=== PATIENT | female | born 1995 | race Caucasian/White ===

== ENCOUNTER 2020-01-24 21:36 | Emergency (ER) | payer SELFPAY ==
[2020-01-24] VITALS (18 sets, daily range): BP systolic 127; BP diastolic 82; PULSE 115; RESP 18; TEMP 36.8; O2SAT 89–100; BMI 27.4
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
[2020-01-24] MEDS: ondansetron 2 mg/ML SDV 2 mL 4 MG IVP (22:28)
[2020-01-24] MEDS: sodium chloride 0.9% 500 ML 999 ML IV (22:28)
[2020-01-24] MEDS: morphine 4 mg/mL SDV 1 mL IVP (22:29)
[2020-01-24 22:54] LABS: Basophils % 0.2 %; Eosinophils # 0.1 10^3/uL (0.0-0.8); Eosinophils % 0.7 %; Hematocrit 40.8 % (37.0-47.0); Hemoglobin 13.6 g/dL (11.5-15.3); Lymphocytes # 2.8 10^3/uL (0.8-4.8); Lymphocytes % 18.2 %; Mean Corpuscular HGB Conc 33.3 g/dL (30.0-36.0); Mean Corpuscular Hemoglobin 29.6 pg (28.0-34.0); Mean Corpuscular Volume 88.9 fL (81-99); Monocytes # 1.4 10^3/uL (0.2-0.9); Neutrophils # 10.8 10^3/uL (1.8-7.7); Neutrophils % 71.6 %; Nucleated Red Blood Cells % 0 %; Platelet Count 362 10^3/cmm (130-400); Red Blood Count 4.59 10^6/uL (4.1-5.3); Red Cell Distribution Width 13.1 % (12.1-15.1); White Blood Count 15.2 10^3/uL (4.0-10.0)
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
[2020-01-24] MEDS: iohexol 300 mg/mL 100 mL Btl IV (23:19)
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
[2020-01-24 23:32] LABS: HCG, Serum Qual Negative (Negative)
[2020-01-24 23:33] LABS: Alanine Aminotransferase 23 U/L (0-33); Albumin Level 4.8 g/dL (3.5-5.2); Alkaline Phosphatase 62 IU/L (35-105); Anion Gap 19.9 (5-19); Aspartate Amino Transferase 30 U/L (0-32); Blood Urea Nitrogen 20 mg/dL (6-20); Carbon Dioxide 20 mmol/L (22-29); Chloride 102 mmol/L (98-107); Creatinine Clr Calc Pharmacy 81.5679; Glomerular Filtration Rate 68.1 mL/min (90-130); Glucose 92 mg/dL (65-115); Osmolality Calculated 282 mOsm/kg (285-295); Potassium 3.9 mmol/L (3.5-5.1); Sodium 138 mmol/L (136-145); Total Bilirubin 0.7 mg/dL (0.15-1.2); Total Protein 7.8 g/dL (6.6-8.7)
[2020-01-25] VITALS (23 sets, daily range): BP systolic 127; BP diastolic 82; O2SAT 87–100
[2020-01-25 01:00] LABS: Urine Appearance Hazy (CLEAR); Urine Color Yellow (Yellow); pH Urine 7 (5-7)
[2020-01-25 01:01] LABS: Add Urine Microscopic? YES; Bilirubin Urine Neg (NEGATIVE); Blood Urine 2+ (Negative); Glucose Urine UA Norm (Normal); Ketones Urine 1+ (Negative); Leukocyte Esterase Urine Negative (Negative); Nitrate Urine Negative (Negative); Protein Urine Trace (Negative); Urobilinogen Urine Norm (Negative)
[2020-01-25 01:02] LABS: Amphetamines Screen Urine Positive (Negative); Barbiturates Screen Urine Negative (Negative); Benzodiazepines Screen Urine Negative (Negative); Cocaine Screen Urine Negative (Negative); Opiate Screen Urine Negative (Negative); PCP Screen Urine Negative (Negative); THC Screen Urine Positive (Negative)
[2020-01-25 01:05] LABS: Add Urine Culture? No; Bacteria Urine 1+; Fine Granular Casts Urine 0-4 /lpf; Mucus Urine 3+
--- NOTE | 2020-01-25 01:57 | PC.NURSE ---
EMS on site to assume care of patient and transport.
== END 2020-01-25 01:57 | disposition other institution (70) ==
PROVIDERS: Emergency Provider Emergency Medicine
DX: J98.2 Interstitial emphysema (principal); F17.210 Nicotine dependence, cigarettes, uncomplicated
CPT/HCPCS: 12345; 70450; 71260; 72125; 73060; 73562; 74177; 80053; 80306; 81001; 84703; 85025; 99284; A9270; J2270; J2405; J7040; Q9967

== ENCOUNTER → 2020-10-27 10:07 | Outpatient (BNVA) | payer OTHER, SELFPAY | PROVIDERS: Visit Provider Nurse Practitioner Family | DX: Z20.828 Contact with and (suspected) exposure to other viral communicable diseases (principal); J06.9 Acute upper respiratory infection, unspecified | CPT/HCPCS: 87635 ==

== ENCOUNTER → 2022-10-19 11:21 | Outpatient (BNVA) | payer BC, MEDICAID, SELFPAY | PROVIDERS: Visit Provider Nurse Practitioner Family | DX: F41.9 Anxiety disorder, unspecified (principal); F32.9 Major depressive disorder, single episode, unspecified; Z12.4 Encounter for screening for malignant neoplasm of cervix; Z11.3 Encounter for screening for infections with a predominantly sexual mode of transmission | CPT/HCPCS: 80053; 80061; 81025; 84146; 84443; 84702; 85025; 86592; 86695; 86696; 86705; 86706; 86709; 86803; 87070; 87075; 87205; 87340; 87491; 87591; 87661; 87806; 88175 ==

== ENCOUNTER 2023-03-17 16:16 | Outpatient (CLI) | payer BC, MEDICAID, SELFPAY ==
--- NOTE | 2023-03-17 16:34 | XRR_ITS ---
PROCEDURE INFORMATION: Exam: XR Thoracic Spine Exam date and time: 03/17/2023 4:35 PM Age: 28 years old Clinical indication: Pain in thoracic spine; Patient HX: Numbness wave down both arms and pain in the middle back; Additional info: M54.6 - pain in thoracic spine TECHNIQUE: Imaging protocol: Radiologic exam of the thoracic spine. Views: 3 views. COMPARISON: CT chest abdpel w/*[id number] 01/24/2020 11:16 PM FINDINGS: Bones/joints: Normal. No acute fracture. Normal alignment. Soft tissues: Unremarkable. XR/XR thoracic spine 3V* [id number] IMPRESSION: No acute findings.
== END 2023-03-17 16:17 | disposition home or self-care (01) ==
PROVIDERS: PCP Nurse Practitioner Family; Visit Provider Nurse Practitioner Family
DX: M54.6 Pain in thoracic spine (principal); R20.0 Anesthesia of skin
CPT/HCPCS: 72072

== ENCOUNTER 2023-05-15 08:43 | Outpatient (CLI) | payer BC, MEDICAID, SELFPAY ==
--- NOTE | 2023-05-15 08:49 | MR_ITS ---
WS: [id number] MRI HEAD WITH CONTRAST TECHNIQUE: Sagittal T1, T2 axial, T2 axial FLAIR, axial susceptibility weighted imaging, axial diffus ion weighted images, and coronal T2 images were obtained. Pre and post-T1 axial and post T1 coronal i mages. ADC and FSPGR images. CLINICAL INFORMATION: DYSARTHRIA COMPARISON: CT head 01/24/2020 FINDINGS: No evidence of restricted diffusion to suggest acute ischemia. Ventricular system and basal cisterns are patent. Advanced patchy supra and infratentorial white matter changes some in a pericallosal dist ribution suspicious for demyelinating disease in a patient this age. Patchy lesions within the khari a nd cerebellum bilaterally. Several small enhancing periventricular lesions left frontal horn, body of the right lateral ventricle posteriorly, and right inferior frontal lobe. Largest measures approxima tely 7 mm in the inferior right frontal lobe. Findings suspicious for active demyelinating disease. M ild thinning of the corpus callosum. Additional tiny enhancing lesion left parietal white matter. Mild to moderate T1 hypointense lesion limited. No significant parenchymal volume loss. Normal dural venous sinuses. No hemosiderin on susceptibility-weighted images. Normal optic chiasm and pituitary i nfundibulum. Temporal lobe and hippocampal formations are normal in appearance. Normal vascular flow voids at the skull base. No extra-axial fluid collections. Paranasal sinuses and mastoid air cells are well aerated. IMPRESSION: 1. Patchy supra and infratentorial white matter changes advanced for a patient this age suspicious f or demyelinating disease. Consider neurology consultation. 2. Few enhancing pericallosal lesions described above the largest measuring 7 mm suspicious for acti ve demyelinating disease. 3. Mild atrophy of the corpus callosum with pericallosal lesions. 4. No hemosiderin on susceptibility weighted images.
[2023-05-15] MEDS: gadobenate dimeglumine 20 mL vial IV (10:06)
== END 2023-05-15 08:44 | disposition home or self-care (01) ==
PROVIDERS: PCP Nurse Practitioner Family; Visit Provider Internal Medicine
DX: R47.1 Dysarthria and anarthria (principal); G31.9 Degenerative disease of nervous system, unspecified; G93.9 Disorder of brain, unspecified; R93.0 Abnormal findings on diagnostic imaging of skull and head, not elsewhere classified
CPT/HCPCS: 70553; A9577

== ENCOUNTER → 2023-06-08 10:41 | Outpatient (BNVA) | payer BC, MEDICAID, SELFPAY | PROVIDERS: PCP Nurse Practitioner Family; Visit Provider Psychiatry & Neurology Neurology | DX: G40.109 Localization-related (focal) (partial) symptomatic epilepsy and epileptic syndromes with simple partial seizures, not intractable, without status epilepticus (principal); M54.6 Pain in thoracic spine; G51.31 Clonic hemifacial spasm, right; R94.01 Abnormal electroencephalogram [EEG] | CPT/HCPCS: 36415; 80053; 82306; 82607; 82746; 83735; 83921; 84439; 84443; 84481; 85025; 85651; 86140; 86160; 86162; 86235; 86255; 86376 ==

== ENCOUNTER → 2024-01-22 13:56 | Outpatient (BNVA) | payer BC, MEDICAID, SELFPAY | PROVIDERS: PCP Nurse Practitioner Family; Visit Provider Nurse Practitioner Family | DX: Z11.3 Encounter for screening for infections with a predominantly sexual mode of transmission (principal) | CPT/HCPCS: 86592; 86695; 86696; 87491; 87591; 87661 ==

== ENCOUNTER → 2024-01-23 | Outpatient (BNVA) | payer BC, MEDICAID, SELFPAY | PROVIDERS: PCP Nurse Practitioner Family; Visit Provider Nurse Practitioner Family | DX: Z11.3 Encounter for screening for infections with a predominantly sexual mode of transmission (principal) | CPT/HCPCS: 87491; 87591 ==

== ENCOUNTER → 2025-08-07 11:09 | Outpatient (BNVA) | payer SELFPAY | PROVIDERS: PCP Nurse Practitioner Family; Visit Provider Nurse Practitioner Family | DX: Z11.3 Encounter for screening for infections with a predominantly sexual mode of transmission (principal); N92.6 Irregular menstruation, unspecified; N91.2 Amenorrhea, unspecified; E55.9 Vitamin D deficiency, unspecified | CPT/HCPCS: 80053; 81025; 82306; 84443; 84702; 85025; 86592; 87491; 87591; 87661; 87806 ==

== ENCOUNTER 2025-09-30 19:41 | Emergency (ER) | payer SELFPAY ==
--- NOTE | 2025-09-30 19:44 | USR_ITS ---
PROCEDURE INFORMATION: Exam: US Pelvis Transabdominal, Limited, and US Pelvis Transvaginal, Non-Obstetric Exam date and time: 09/30/2025 8:02 PM Age: 30 years old Clinical indication: Pelvic pain TECHNIQUE: Imaging protocol: Real-time transabdominal and transvaginal pelvic ultrasound (non-obstetric) with image documentation. Transabdominal imaging is limited. Transvaginal imaging was used for better evaluation of the endometrium, adnexa, and/or cervix. 256 image(s) are submitted. COMPARISON: CT chest abdpel w/*[id number] 01/24/2020 11:16 PM FINDINGS: Uterus: Normal uterine size of 7.5 x 4.6 x 5 cm with smooth endometrial lining of 1 cm thickness. Right ovary measures 4.8 x 2.9 x 3.4 cm containing at least 2 irregular cysts with internal echoes measuring 2.4 x 1 cm and 1.6 x 1 cm each, could represent hemorrhagic cysts. Right ovary/adnexa: Right ovarian volume of 25 cc. Left ovary size is 10 cc, 2.9 x 3.1 x 2.1 cm diameter. Left ovary/adnexa: See Right ovary/adnexa finding. Urinary bladder: Urinary bladder is limited. Intraperitoneal space: Small amount of free pelvic fluid in the cul-de-sac. No adnexal mass lesion seen. US/US pelvis lmt w transvag IMPRESSION: 1. Normal uterine size of 7.5 x 4.6 x 5 cm with smooth endometrial lining of 1 cm thickness. Right ovary measures 4.8 x 2.9 x 3.4 cm containing at least 2 irregular cysts with internal echoes measuring 2.4 x 1 cm and 1.6 x 1 cm each, could represent hemorrhagic cysts. 2. Small amount of free pelvic fluid in the cul-de-sac. No adnexal mass lesion seen.
--- NOTE | 2025-09-30 19:45 | ED_ITS ---
HPI - General Adult 2 General: Chief complaint: Urogenital-Female Stated complaint: RT ovarie pain to middle back. Pressure on Rectum Time Seen by Provider: 09/30/25 19:45 History of Present Illness: 30-year-old female presents emergency ro om with complaints of right sided pelvic pain and discomfort. Some rectal pain. She was seen in early August had a negative test. After intercourse with her she began to have pelvic pain radiating to her back and into the rectal area. She has not had any vaginal bleeding. She denies any diarrhea no vaginal discharge. Associated symptoms: Deny chest pain, dyspnea or rash Related Data Previous Rx's ?Medication ?Instructions ?Recorded cholecalciferol (vitamin D3) 1,250 50,000 unit PO .brenton klcindy #12 caps 08/07/25 mcg (50,000 unit) capsule cephalexin 500 mg capsule 500 mg PO TID 7 days #21 cap s 09/30/25 diclofenac sodium 75 mg 75 mg PO Q12H PRN pain #20 t abs 09/30/25 tablet,delayed release Allergies Allergy/AdvReac Type Severity Reaction Status Date / Time No Known Allergies Allergy Verified 08/07/25 10:27 Review of Systems 2 Const: Denies: fever(s) or chills Card: Denies: chest pain Resp: Denies: dyspnea GI: Denies: abdominal pain : Reports: pelvic pain; Denies: dysuria, urinary frequency, urinary urgency, vaginal bleeding or vaginal discharge Musc: Denies: neck pain or back pain Skin/Breast: Denies: rash PFSH ED 2 PFSH: Medical History Anxiety and depression Thoracic spine pain Social History Smoking and tobacco/nicotine status: current every day tobacco/nicotine user e- cigarettes E-Cigarette Details: vaporizer device Second hand smoke exposure: No Alcohol intake: current Alcohol intake frequency: few times a week Alcohol type: beer Substance/Drug Use: former Caregiver/support person: Yes Lives independently: Yes Household members: significant other Marital status: Single Current occupational status: employed and student Current occupation: [employer] and fulltime student at [employer] Current gender identity: Female Special dariela needs: No Physical Exam 2 Const: COMMON NORMALS: no acute distress GENERAL APPEARANCE: cooperative and comfortable ORIENTATION/CONSCIOUSNESS: Yes awake, Yes oriented to person, Yes oriented to place and Yes oriented to time HENMT: COMMON NORMALS: normocephalic, atraumatic and hearing grossly normal bilaterally HEAD & SCALP: normocephalic and atraumatic Resp: COMMON NORMALS: normal respiratory effort, No retractions, No use of accessory muscles and clear to auscultation bilaterally AUSCULTATION: clear to auscultation bilaterally Cardio: COMMON NORMALS: regular rate, regular rhythm and No murmurs present (Cardio) RATE: regular rate RHYTHM: regular rhythm GI: COMMON NORMALS: Soft to palpation and No hepatosplenomegaly present A USCULTATION: Yes normoactive bowel sounds PALPATION: Yes Soft to palpation, No Tenderness to palpation present (GI), No Guarding due to palpation present (GI) and Yes No hepatosplenomegaly present Extremity: COMMON NORMALS: normal to inspection, capillary refill normal, no clubbing, cyanosis or edema, no calf tenderness and no pedal edema Neuro: SENSORIUM/ORIENTATION: Yes oriented to person, Yes oriented to place and Yes oriented to time Skin: COMMON NORMALS: no rashes or lesions noted GENERAL SKIN EXAM: no rashes or lesions noted Course 2 Vital Signs: Vital signs: Vital Signs Temperature 98.7 F 09/30/25 19:46 Pulse Rate 87 09/30/25 21:10 Respiratory Rate 17 09/30/25 19:46 Blood Pressure 137/87 09/30/25 21:10 Pulse Oximetry 98 09/30/25 21:10 Oxygen Delivery Me thod Room Air 09/30/25 19:46 MDM - General Adult Medical Decision Making Patient is dyspareunia shortly after intercourse. Pelvic ultrasound shows ovarian cysts urine shows 4+ bacteria and does have a fair number of white blood cells also squamous cells positive leukocyte esterase. White count not elevated appendicitis thought to be unlikely. Chemistries otherwise normal labs reviewed as found on the chart. Discussed with patient. Started on diclofenac as well as cephalexin for the urine. She has an upcoming appointment with her telegraph and teletype operator follow-up with them regarding the ovarian cyst she may need to repeat ultrasound in 1-2 cycles. Differential Diagnosis Ovarian cyst, ruptured ovarian cyst, ectopic , , appendicitis Medical Records I reviewed the patient's medical records. Lab Data I reviewed the patient's lab results. 09/30/25 19:48 09/30/25 19:48 Radiology Impressions Pelvic/Transvag US 09/30/25 19:44 IMPRESSION: 1. Normal uterine size of 7.5 x 4.6 x 5 cm with smooth endometrial lining of 1 cm thickness. Right ovary measures 4.8 x 2.9 x 3.4 cm containing at least 2 irregular cysts with internal echoes measuring 2.4 x 1 cm and 1.6 x 1 cm each, could represent hemorrhagic cysts. 2. Small amount of free pelvic fluid in the cul-de-sac. No adnexal mass lesion seen. Laboratory Results WBC 9.96 10^3/uL (3.29-11.43) 09/30/25 19:48 RBC 4.29 10^6/uL (3.85-5.65) 09/30/25 19:48 Hgb 12.70 g/dL (11.27-16.99) 09/30/25 19:48 Hct 38.7 % (36-47) 09/30/25 19:48 MCV 90.2 fl (85-98) 09/30/25 19:48 MCH 29.6 pg (27-33) 09/30/25 19:48 MCHC 32.8 g/dL (30-55) 09/30/25 19:48 RDW 13.1 % (12.1-15.1) 09/30/25 19:48 Plt Count 256 10^3/cmm (157-399) 09/30/25 19:48 MPV 8.7 fL (7.4-10.4) 09/30/25 19:48 Neut % (Auto) 59.3 % 09/30/25 19:48 Lymph % (Auto) 25.0 % 09/30/25 19:48 [place] % (Auto) 9.5 % 09/30/25 19:48 Eos % (Auto) 5.8 % 09/30/25 19:48 Baso % (Auto) 0.2 % 09/30/25 19:48 Neut # (Auto) 5.90 10^3/uL (1.8-7.7) 09/30/25 19:48 Lymph # (Auto) 2.5 10^3/uL (0.8-4.8) 09/30/25 19:48 [place] # (Auto) 1.0 10^3/uL (0.2-0.9) H 09/30/25 19:48 Eos # (Auto) 0.6 10^3/uL (0.0-0.8) 09/30/25 19:48 Baso # (Auto) 0.0 10^3/uL (0.0-0.1) 09/30/25 19:48 Nucleated RBC % (auto) 0 % 09/30/25 19:48 Nucleated RBCs # 0.0 /100WBC 09/30/25 19:48 Sodium 137 mmol/L (136-145) 09/30/25 19:48 Potassium 3.9 mmol/L (3.5-5.1) 09/30/25 19:48 Chloride 102 mmol/L (98-107) 09/30/25 19:48 Carbon Dioxide 24 mmol/L (22-29) 09/30/25 19:48 Anion Gap 14.9 (5-19) 09/30/25 19:48 BUN 22 mg/dL (6-20) H 09/30/25 19:48 Creatinine 1.0 mg/dL (0.5-0.9) H 09/30/25 19:48 GFR Calculation 65.6 mL/min (90-130) L 09/30/25 19:48 Glucose 76 mg/dL (65-115) 09/30/25 19:48 Calculated Osmolality 286 mOsm/kg (285-295) 09/30/25 19:48 Calcium 9.2 mg/dL (8.5-10.5) 09/30/25 19:48 Total Bilirubin 0.3 mg/dL (0.15-1.2) 09/30/25 19:48 AST 20 U/L (0-32) 09/30/25 19:48 ALT 37 U/L (0-33) H 09/30/25 19:48 Alkaline Phosphatase 48 U/L (35-105) 09/30/25 19:48 Total Protein 7.1 g/dL (6.6-8.7) 09/30/25 19:48 Albumin 4.6 g/dL (3.5-5.2) 09/30/25 19:48 Globulin 2.5 g/dL (1.3-4.6) 09/30/25 19:48 HCG, Qual Negative (Negative) 09/30/25 19:48 Urine Color Yellow (Yellow) 09/30/25 20:29 Urine Appearance Cloudy (CLEAR) A 09/30/25 20: Urine pH 5.5 (5-7) 09/30/25 20:29 Ur Specific [place] 1.040 (1.005-1.030) H 09/30/25 20:29 Urine Protein Negative (Negative) 09/30/25 20: Urine Glucose (UA) Negative (Normal) 09/30/25 20: Urine Ketones Trace (Negative) 09/30/25 20: Urine Blood Negative (Negative) 09/30/25 20: Urine Nitrate Negative (Negative) 09/30/25 20: Urine Bilirubin Negative (Negative) 09/30/25 20: Urine Urobilinogen 1.0 mg/dL (Negative) 09/30/25 20:29 Ur Leukocyte Esterase 1+ (Negative) A 09/30/25 20: Urine RBC 0-2 /hpf (0-2) 09/30/25 20:29 Urine WBC 21-50 /hpf (0-5) H 09/30/25 20:29 Ur Squamous Epith Cells 21-50 /hpf (0-5) H 09/30/25 20:29 Amorphous Sediment Not Reportable 09/30/25 20: Urine Bacteria 4+ /hpf (NONE) H 09/30/25 20:29 Hyaline Casts 0.81 /lpf 09/30/25 20:29 All radiology interpretation(s) finalized by discharge Discharge Plan Discharge Patient Disposition: Home Clinical Impression: Ovarian cyst, Cystitis Condition: Stable Prescriptions: New diclofenac sodium 75 mg tablet,delayed release (DR/EC) 75 mg PO Q12H PRN (Reason: pain) Qty: 20 0RF cephalexin 500 mg capsule 500 mg PO TID 7 Days Qty: 21 0RF No Action cholecalciferol (vitamin D3) 1,250 mcg (50,000 unit) capsule 50,000 unit PO .weekly Qty: 12 0RF Discharge Orders: Discharge ED (Routine); Ordered 09/30/25 Ordered By: Julio Obrien Referrals: Marisabel Agudelo FNP [Primary Care Provider, Family Practice] Discharge Diet: Usual diet Discharge Activity: Resume usual activity Patient Instructions: Opioid Safety, Pain Management, Patient Portal & Margo Instructions Activity Restrictions/Additional Instructions: Thank you for choosing [facility] for your healthcare needs today. It is very important that you follow up as instructed or that you return to the Emergency Department should you have concerns or if your condition changes or worsens in any way. Emergency department visits are focused on emergent conditions, in some cases you may require further evaluation on an outpatient basis. You were seen in the emergency room with pelvic pain ultrasound shows multiple right ovarian cyst there is no free fluid in the pelvis to suggest that the cyst that ruptured. Did have a mild cystitis. Will put you on diclofenac 1 tablet twice a day as needed for discomfort. Also started on oral antibiotic 1 pill 3 times a day for 7 days. Follow-up with your telegraph and teletype operator regarding the ovarian cyst. (Please note that included in your discharge packet is information concerning opioid safety and pain management. This information is given to all patients were discharged from the ER regardless of their discharge diagnosis or the medicines they usually take or are prescribed.) Print Language: Sami Coding Level of Care Code ED Home Health Administrator for Clint Shaw
[2025-09-30 19:46] VITALS: BP 139/83; PULSE 90; RESP 17; TEMP 37.1; O2SAT 100; BMI 27.4
--- OUTSIDE RECORDS SUMMARY | 2025-09-30 19:51 | XMS_ITS | Clinical Summary ---
Author Organization [facility] Address [address] [place] [address] Care Team Providers Care Steam Conditioner Operator Name Role Phone Chiara Wharton MD Primary Care Provider +1- [phone] Allergies No known active allergies Medications buPROPion XL 24 hour (WELLBUTRIN-XL) 300 mg tabletIndicatio ns:Major depression Take 1 Tab by mouth daily manager fiber. 30 Tab 6 01/09/2014 Active cyclobenzaprine (FLEXERIL) 10 mg tablet Take 1 Tab by mouth 3 times daily. 30 Tab 0 01/25/2014 Active traMADol (ULTRAM) 50 mg tablet Take 1 Tab by mouth every 6 hours as needed for Pain. 12 Tab 0 01/25/2014 Active Clindamycin-Sukhdev zoyl Peroxide (BENZACLIN) 1-5 % GelIndications: Acne Apply to affected area daily. 25 Gram 8 05/09/2014 Active Active Problems Problem Noted Date Diagnosed Date Major depression 01/25/2013 Resolved Problems Problem Noted Date Diagnosed Date Resolved Date GERD (gastroesophageal reflux disease) 04/30/2010 11/18/2011 Well child check 11/24/2009 04/30/2010 Abdominal pain 11/21/2008 11/16/2010 Immunizations Immunization Administration Dates Next Due (ADACEL/BOOSTRIX)(10 YR UP) TDAP VACCINE, 0.5ML, IM 05/07/2010 (M-M-R II/PRIORIX)(12 MO UP) MEASLES, MUMPS AND RUBELLA VIRUS VACCINE, 0.5 ML IM/SUBCUT 05/22/2001,01/26/2001 Dt Dtp Dtap Vaccine 01/26/2001, 6,1996,03/04 HIB, Unspecified Formulation 1996,05/08/19 96,1996 Hepatitis B Vaccine 01/26/2001,1996,1995 IPV/OPV 01/26/2001,1996,1996 Meningococcal A Conjugate Vaccine IM 05/07/2010 Family History Medical History Relation Name Comments Multiple Sclerosis Maternal Aunt Relation Name Status Comments Maternal Aunt Social History Tobacco Use Types Packs/Day Years Used Date Smoking Tobacco: Never Smokeless Tobacco: Never Tobacco Cessation:Counseling Given: Yes Alcohol Use Standard Drinks/Week Comments No 0 (1 standard drink = 0.6 oz pur e alcohol) Comments No Sex and Gender Information Value Date Recorded Sex Assigned at Not on file 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 Gender Identity Not on file Sexual Orientation Not on file Last Filed Vital Signs Vital Sign Reading Time Taken Comments Blood Pressure 128/68 02/18/2014 11:36 AM CDT Pulse 61 02/18/2014 11:36 AM CDT Temperature 37.1 C (98.7 F) 01/25/2014 12:22 PM CDT Respiratory Rate 12 02/18/2014 11:3 6 AM CDT Oxygen Saturation 100% 02/18/2014 11: 36 AM CDT Inhaled Oxygen Concentration - - Weight 69.8 kg (153 lb 12.8 oz) 014 11:36 AM CDT Height 161.3 cm (5' 3.5 ) 02/18/2014 11 :36 AM CDT Body Mass Index 26.82 02/18/2014 11:36 AM CDT Plan of Treatment Health Maintenance Due Date Last Done Comments Preventative Visit-Managed Medicaid 01/01/2015 11/29/2012, 11/17/2011, 11/16/2010, Additional history exists CERVICAL CANCER SCREENING 01/01/2017 HPV/Cotest (21-29) 01/01/2017 PAP SMEAR 01/01/2017 DTAP/TDAP/TD VACCINES (6 - T d or Tdap) 05/07/2020 05/07/2010, 01/26/2001, 1996, Additional history exists INFLUENZA VACCINE (#1) 2025 HEPATITIS B VACCINES Completed 01/26/2001, 1996, 1996 HPV VACCINES (No Doses Required) Completed Insurance MEDICAID [place] Care Teams Steam Conditioner Operator Relationship Specialty Start Date End Date Chiara Wharton MD [address] [place] [id number] PCP - General 10/20/07
--- OUTSIDE RECORDS SUMMARY | 2025-09-30 19:51 | XMS_ITS | Patient Health Record ---
Author Organization [facility] Address [address] [place] [address] Care Team Providers Care Senior Auditor Name Role Phone Belkis Arias Primary Care Provider Markell Wagner Unavailable Reason For Referral No Information Medications Medication SIG (Take, Route, Frequency, Duration) Notes Start Date End Date Status tiZANidine HCl 4 MG Tablet 1 tablet as n eeded Orally Three times a day Active Social History Tobacco Use: Social History Observation Description Date Details (start date - stop date) Former Smoker NA - NA Social History Tobacco Use: Social Info Question Answer Notes xTobacco Use/Smoking Are you a former smoker How long has it been since you last smoked? 1-5 years Tobacco use other than smoking: Are you an other tobacco user? She uses nicotine vape pens Problems Problem Type SNOMED Code ICD Code Onset Dates Problem Status W/U Status Risk Notes Problem Dysarthria (8008551) Dysarthria (R47.1) Active confirmed Problem Muscle spasm (79860185) Muscle spasm (M62.838) Active confirmed Plan Of Treatment No Information Insurance Providers Payer Name Payer Address Payer Phone Subscriber Number Group Number Insured Name Patient Relationship to Insured Coverage Start Date Coverage End Date Healthy [facility] Medicaid Replacement [address] [address] [place] [address] [id number] Felicity Greenberg Self - patient is the insured Medical (General) History Medical History History ICD Code hx of concussions with soccer
--- OUTSIDE RECORDS SUMMARY | 2025-09-30 19:51 | XMS_ITS | Encounter Summary ---
Author Organization [facility] Address [address] [place] [address] Care Team Providers Care Contemporary Or Modern Dancer Name Role Phone Chiara Wharton MD Primary Care Provider +1- [phone] Encounter Details Date Type Department Care Team (Latest Contact Info) Description 06/20/2007 Outpatient Historical [facility] Medicine-[facility] [place] [address] [place] [address] Kashif Hung DO NO ADDRESS ON FILE Pneumonia, Organism Unspecified (Primary Dx) Social History Tobacco Use Types Packs/Day Years Used Date Smoking Tobacco: Never Assessed Comments Unknown Sex and Gender Information Value Date Recorded Sex Assigned at Not on file 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
--- OUTSIDE RECORDS SUMMARY | 2025-09-30 19:51 | XMS_ITS | Encounter Summary ---
Author Organization [facility] Address [address] [place] [address] Care Team Providers Care District Agent Name Role Phone Chiara Wharton MD Primary Care Provider +1- [phone] Encounter Details Date Type Department Care Team (Latest Contact Info) Description 07/10/2006 Outpatient Historical [facility] [address] [place] [address] Javed Campo DO NO ADDRESS ON FILE Pediculus Capitis (Primary Dx) Social History Tobacco Use Types Packs/Day Years Used Date Smoking Tobacco: Never Assessed Comments Unknown Sex and Gender Information Value Date Recorded Sex Assigned at Not on file 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
--- OUTSIDE RECORDS SUMMARY | 2025-09-30 19:51 | XMS_ITS | Encounter Summary ---
Author Organization [facility] Address [address] [place] [address] Care Team Providers Care Manager Federal Name Role Phone Chiara Wharton MD Primary Care Provider +1- [phone] Encounter Details Date Type Department Care Team (Latest Contact Info) Description 07/20/2007 Outpatient Historical [facility] Medicine-[facility] [place] [address] [place] [address] Chiara Wharton MD [address] [place] [address] Pneumonia, Organism Unspecified (Primary Dx) Social History Tobacco Use Types Packs/Day Years Used Date Smoking Tobacco: Never Assessed Comments Unknown Sex and Gender Information Value Date Recorded Sex Assigned at Not on file Legal Sex Female 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
--- OUTSIDE RECORDS SUMMARY | 2025-09-30 19:51 | XMS_ITS | Encounter Summary ---
Author Organization [facility] Address [address] [place] [address] Care Team Providers Care Timber Treatment Plant Operator Name Role Phone Chiara Wharton MD Primary Care Provider +1- [phone] Encounter Details Date Type Department Care Team (Late st Contact Info) Description 11/01/2007 Outpatient Historical [facility] [address] [place] [address] Chiara Wharton MD [address] [place] [address] Social History Tobacco Use Types Packs/Day Years Used Date Smoking Tobacco: Never Assessed Comments Unknown Sex and Gender Information Value Date Recorded Sex Assigned at Not on file Legal Sex Female 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
--- OUTSIDE RECORDS SUMMARY | 2025-09-30 19:51 | XMS_ITS | Encounter Summary ---
Author Organization [facility] Address [address] [place] [address] Care Team Providers Care Carton Folder Name Role Phone Chiara Wharton MD Primary Care Provider +1- [phone] Encounter Details Date Type Department Care Team (Latest Contact Info) Description 10/05/1997 Outpatient Historical [facility] [place] [address] [place] [phone] Art Silveira MD NO ADDRESS ON FILE Croup (Primary Dx) Social History Tobacco Use Types Packs/Day Years Used Date Smoking Tobacco: Never Assessed Comments Unknown Sex and Gender Information Value Date Recorded Sex Assigned at Not on file Legal Sex 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
--- OUTSIDE RECORDS SUMMARY | 2025-09-30 19:51 | XMS_ITS | Encounter Summary ---
Author Organization [facility] Address [address] [place] [address] Care Team Providers Care Manager Lvn Name Role Phone Chiara Wharton MD Primary Care Provider +1- [phone] Encounter Details Date Type Department Care Team (Latest Contact Info) Description 10/14/2005 Outpatient Historical [facility] Pediatrics[facility] [place] [address] [place] [address] Susan Read MD NO ADDRESS ON FILE Routine child health exam (Primary Dx) Social History Tobacco Use Types Packs/Day Years Used Date Smoking Tobacco: Never Assessed Comments Unknown Sex and Gender Information Value Date Recorded Sex Assigned at Not on file 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
--- OUTSIDE RECORDS SUMMARY | 2025-09-30 19:51 | XMS_ITS | Encounter Summary ---
Author Organization [facility] Address [address] [place] [address] Care Team Providers Care Construction Tech Name Role Phone Chiara Wharton MD Primary Care Provider +1- [phone] Encounter Details Date Type Department Care Team (Late st Contact Info) Description 08/29/2005 Emergency [facility] Emergency Department [address] 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
--- OUTSIDE RECORDS SUMMARY | 2025-09-30 19:51 | XMS_ITS | Encounter Summary ---
Author Organization [facility] Address [address] [place] [address] Care Team Providers Care Bridges Supervisor Name Role Phone Chiara Wharton MD Primary Care Provider +1- [phone] Encounter Details Date Type Department Care Team (Latest Contact Info) Description 05/26/2006 Outpatient Historical [facility] [address] [place] [address] Javed Campo DO NO ADDRESS ON FILE Acute Sinusitis, Unspecified (Primary Dx); Diarrhea Social History Tobacco Use Types Packs/Day Years Used Date Smoking Tobacco: Never Assessed Comments Unknown Sex and Gender Information Value Date Recorded Sex Assigned at Not on file Legal 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
--- OUTSIDE RECORDS SUMMARY | 2025-09-30 19:51 | XMS_ITS | Encounter Summary ---
Author Organization [facility] Address [address] [place] [address] Care Team Providers Care Manager Of Maintenance Name Role Phone Chiara Wharton MD Primary Care Provider +1- [phone] Encounter Details Date Type Department Care Team (Late st Contact Info) Description 10/18/2005 Outpatient Historical [facility] [address] [place] [address] Kyle Beltre S, OD [address] [place] [address] ASTIGMATISM NOS (Primary Dx) Social History Tobacco Use Types Packs/Day Years Used Date Smoking Tobacco: Never Assessed Comments Unknown Sex and Gender Information Value Date Recorded Sex Assigned at Not on file Legal Sex Female 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
--- OUTSIDE RECORDS SUMMARY | 2025-09-30 19:51 | XMS_ITS | Encounter Summary ---
Author Organization [facility] Address [address] [place] [address] Care Team Providers Care String Studies Director Name Role Phone Chiara Wharton MD Primary Care Provider +1- [phone] Encounter Details Date Type Department Care Team (Late st Contact Info) Description 06/17/2007 Emergency [facility] Emergency Department [address] 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 Gender Identity Not on file Sexual Orientation Not on file documented as of this encounter Plan of Treatment Not on file documented as of this encounter Procedures Procedure Name Priority Date/Time Associated Diagnosis Comments CBC WITH DIFFERENTIAL Routine 06/17/2007 10:53 PM CDT BASIC METABOLIC PANEL Routine 06/17/2007 10:53 PM CDT RAPID STREP SCREEN WITH REFLEX CULTURE Routine 06/17/2007 10:15 PM CDT XR CHEST PA AND LATERAL 2 VW Routine 06/17/2007 9:26 PM CDT XR NECK SOFT TISSUE Routine 06/17/2007 9 :26 PM CDT documented in this encounter Results * (ABNORMAL) BASIC METABOLIC PANEL (06/17/2007 10:53 PM CDT) Pathologist [facility] GLUCOSE 99 60 - 100 mg/dL INTERFACE SYSTEM BUN 13 7 - 17 mg/dL INTERFACE SYSTEM CREATININE 0.6(L) 0.7 - 1.2 mg/dL INTERFACE SYSTEM SODIUM 140 136 - 145 mEq/L INTERFACE SYSTEM POTASSIUM 3.9 3.5 - 5.0 mEq/L INTERFACE SYSTEM CHLORIDE 110 95 - 110 mEq/L INTERFACE SYSTEM CO2 22 22 - 32 mmol/l INTERFACE SYSTEM CALCIUM 9.4 8.4 - 10.5 mg/dL INTERFACE SYSTEM ANION GAP 12 9 - 20 mEq/L INTERFACE SYSTEM OSMOLALITY, CALCULATED 288 275 - 295 mOsm/Kg INTERFACE SYSTEM 06/17/2007 10:5 3 PM CDT us Ezequiel Shea MD CHEMISTRY ORDERABLES Edited INTERFACE SYSTEM Refer to clinic/hospital department * (ABNORMAL) CBC WITH DIFFERENTIAL (06/17/2007 10:53 PM CDT) Pathologist [facility] WBC 8.5 4.5 - 13.5 K/ul INTERFACE SYSTEM RBC 4.27(L) 4.30 - 5.30 Mil/ul INTERFACE SYSTEM HEMOGLOBIN 11.8(L) 12.0 - 14.4 g/dL INTERFACE SYSTEM HEMATOCRIT 35.0 35.0 - 45.0 % INTERFACE SYSTEM MCV 82.0 78.0 - 102.0 Fl INTERFACE SYSTEM MCH 27.6 26.0 - 32.0 pg INTERFACE SYSTEM MCHC 33.7 33.0 - 35.0 g/dL INTERFACE SYSTEM RDW 13.6 11.0 - 14.5 % INTERFACE SYSTEM PLATELETS 241 140 - 440 K/ul INTERFACE SYSTEM MPV 9.7 8.9 - 12.8 Fl INTERFACE SYSTEM NEUTROPHILS 76.4(H) 42.2 - 75.2 % INTERFACE SYSTEM LYMPHOCYTES 14.1(L) 28.0 - 48.0 % INTERFACE SYSTEM MONOCYTES 8.7(H) 4.0 - 5.0 % INTERFACE SYSTEM EOSINOPHILS 0.6 0.0 - 7.0 % INTERFACE SYSTEM BASOPHILS 0.2 0.0 - 1.0 % INTERFACE SYSTEM NEUTROPHIL ABSOLUTE 6.5 2.0 - 8.0 K/ul INTERFACE SYSTEM LYMPHOCYTE ABSOLUTE 1.2 1.2 - 4.0 K/ul INTERFACE SYSTEM MONOCYTE ABSOLUTE 0.7(H) 0.1 - 0.6 K/ul INTERFACE SYSTEM EOSINOPHIL ABSOLUTE 0.1 0.0 - 0.7 K/ul INTERFACE SYSTEM BASOPHILS ABSOLUTE 0.0 0.0 - 0.2 K/ul INTERFACE SYSTEM 06/17/2007 10:5 3 PM CDT Ezequiel Shea MD HEMATOLOGY ORDERABLES Edited Performing Organization Address [facility] de Phone Number INTERFACE SYSTEM Refer to clinic/hospital department * RAPID STREP SCREEN WITH REFLEX CULTURE (06/17/2007 10:15 PM CDT) RAPID STREP SCREEN WITH REFLEX CULTURE Negative Negative INTERFACE SYSTEM 06/17/2007 10:1 5 PM CDT Ezequiel Shea MD MICROBIOLOGY - GENERAL ORDER RAMONITA Edited Performing Organization Address [facility] de Phone Number INTERFACE SYSTEM Refer to clinic/hospital department * XR NECK SOFT TISSUE (06/17/2007 9:26 PM CDT) Anatomical Region Laterality Modality Neck Other 06/17/2007 9:26 PM CDT Narrative 06/17/2007 9:26 PM CDT Exam: Soft Tissue NeckDate/Time of Exam: Jun 17, 2007 10:55:28 PMHistory: Croup. Findings: There is slight straightening of the cervical lordosis. The vertebral body heights and discinterspace heights are well maintained. The prevertebral soft tissues are unremarkable. Thehypopharynx and subglottic airway are patent. There is mild fullness of the region of the tonsilsand adenoids. No gross masses are apparent. Impression: Negative examination. - Dictated By: Chet Kern M.D. Electronically Signed By: Chet Kern M.D. Date Signed: 06/18/07 Procedure Note 08/23/2009 Exam: Soft Tissue NeckDate/Time of Exam: Jun 17, 2007 10:55:28 PMHistory: Croup. Findings: There is slight straightening of the cervical lordosis. The vertebral bodyheights and discinterspace heights are well maintained. The prevertebral soft tissues areunremarkable. Thehypopharynx and subglottic airway are patent. There is mild fullness of the region of thetonsilsand adenoids. No gross masses are apparent. Impression: Negative examination. - Dictated By: Chet Kern M.D. Electronically Signed By: Chet Kern M.D. Date Signed: 06/18/07 Ezequiel Shea MD DIAGNOSTIC IMAGING ORDERABLE S Final Result * XR CHEST PA AND LATERAL (06/17/2007 9:26 PM CDT) Anatomical Region Laterality Modality Chest Other 06/17/2007 9:26 PM CDT Narrative 06/17/2007 9:26 PM CDT Exam: Chest - PA and LateralDate/Time of Exam: Jun 17, 2007 10:55:28 PMHistory: Chest pain. Findings: Comparison dated 08/29/2005. There is a patchy infiltrate in the region of the lingula ofthe left lung. The right lung appears to be clear. The cardiomediastinal silhouette and pulmonaryvasculature are within normal limits. Impression: Lingular pneumonia. - Dictated By: Chet Kern M.D. Electronically Signed By: Chet Kern M.D. Date Signed: 06/18/07 Procedure Note 08/23/2009 Exam: Chest - PA and LateralDate/Time of Exam: Jun 17, 2007 10:55:28 PMHistory: Chest pain. Findings: Comparison dated 08/29/2005. There is a patchy infiltrate in the region ofthe lingula ofthe left lung. The right lung appears to be clear. The cardiomediastinal silhouette andpulmonaryvasculature are within normal limits. Impression: Lingular pneumonia. - Dictated By: Chet Kern M.D. Electronically Signed By: Chet Kern M.D. Date Signed: 06/18/07 Ezequiel Shea MD DIAGNOSTIC IMAGING ORDERABLE S Final Result documented in this encounter Visit Diagnoses Diagnosis Fever and other physiologic disturbances of temperature regulation- Primary documented in this encounter Care Teams String Studies Director Relationship Specialty Start Date End Date Chiara Wharton MD [address] [place] [address] PCP - General 10/20/07 documented as of this encounter
--- OUTSIDE RECORDS SUMMARY | 2025-09-30 19:51 | XMS_ITS | Encounter Summary ---
Author Organization [facility] Address [address] [place] [address] Care Team Providers Care Front Desk Coordinator Name Role Phone Chiara Wharton MD Primary Care Provider +1- [phone] Encounter Details Date Type Department Care Team (Late st Contact Info) Description 10/24/2007 Emergency [facility] Emergency Department [address] 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 Gender Identity Not on file Sexual Orientation Not on file documented as of this encounter Plan of Treatment Not on file documented as of this encounter Procedures Procedure Name Priority Date/Time Associated Diagnosis Comments CBC WITH DIFFERENTIAL Routine 10/24/2007 2:42 AM WATCH ASSEMBLY INSTRUCTOR LIPASE Routine 10/24/2007 2:42 AM WATCH ASSEMBLY INSTRUCTOR COMPREHENSIVE METABOLIC PANEL Routine 10/24/2007 2:42 AM WATCH ASSEMBLY INSTRUCTOR documented in this encounter Results * LIPASE (10/24/2007 2:42 AM WATCH ASSEMBLY INSTRUCTOR) LIPASE 25 6 - 51 U/L INTERFACE SYSTEM 10/24/2007 2:42 AM WATCH ASSEMBLY INSTRUCTOR Rachel Diallo MD CHEMISTRY ORDERABLES Edited Performing Organization Address [facility] Phone Number INTERFACE SYSTEM Refer to clinic/hospital department * (ABNORMAL) COMPREHENSIVE METABOLIC PANEL (10/24/2007 2:42 AM WATCH ASSEMBLY INSTRUCTOR) GLUCOSE 92 60 - 100 mg/dL INTERFACE SYSTEM BUN 19(H) 7 - 17 mg/dL INTERFACE SYSTEM CREATININE 0.7 0.7 - 1.2 mg/dL INTERFACE SYSTEM SODIUM 141 136 - 145 mEq/L INTERFACE SYSTEM POTASSIUM 4.1 3.5 - 5.0 mEq/L INTERFACE SYSTEM CHLORIDE 107 95 - 110 mEq/L INTERFACE SYSTEM CO2 27 22 - 32 mmol/l INTERFACE SYSTEM CALCIUM 10.1 8.4 - 10.5 mg/dL INTERFACE SYSTEM TOTAL PROTEIN 7.1 6.3 - 8.2 g/dL INTERFACE SYSTEM ALBUMIN 4.5 3.5 - 5.0 g/dL INTERFACE SYSTEM ALKALINE PHOSPHATASE 256 56 - 288 U/L INTERFACE SYSTEM AST 15 8 - 33 U/L INTERFACE SYSTEM ALT 9 4 - 36 IU/L INTERFACE SYSTEM BILIRUBIN TOTAL 0.2(L) 0.3 - 1.2 mg/dL INTERFACE SYSTEM GLOBULIN (CALC) 2.6 2.4 - 3.9 g/dL INTERFACE SYSTEM ALBUMIN/GLOBULIN RATIO 1.7 1.0 - 2.3 INTERFACE SYSTEM ANION GAP 11 9 - 20 mEq/L INTERFACE SYSTEM OSMOLALITY, CALCULATED 292 275 - 295 mOsm/Kg INTERFACE SYSTEM 10/24/2007 2:42 AM WATCH ASSEMBLY INSTRUCTOR Result [facility] Rachel Diallo MD CHEMISTRY ORDERABLES Edited Performing Organization Address [facility] Phone Number INTERFACE SYSTEM Refer to clinic/hospital department * (ABNORMAL) CBC WITH DIFFERENTIAL (10/24/2007 2:42 AM WATCH ASSEMBLY INSTRUCTOR) WBC 10.6 4.5 - 13.5 K/ul INTERFACE SYSTEM RBC 4.79 4.30 - 5.30 Mil/ul INTERFACE SYSTEM HEMOGLOBIN 13.2 12.0 - 14.4 g/dL INTERFACE SYSTEM HEMATOCRIT 39.6 35.0 - 45.0 % INTERFACE SYSTEM MCV 82.7 78.0 - 102.0 Fl INTERFACE SYSTEM MCH 27.6 26.0 - 32.0 pg INTERFACE SYSTEM MCHC 33.3 33.0 - 35.0 g/dL INTERFACE SYSTEM RDW 12.9 11.0 - 14.5 % INTERFACE SYSTEM PLATELETS 297 140 - 440 K/ul INTERFACE SYSTEM MPV 9.6 8.9 - 12.8 Fl INTERFACE SYSTEM NEUTROPHILS 52.1 42.2 - 75.2 % INTERFACE SYSTEM LYMPHOCYTES 36.0 28.0 - 48.0 % INTERFACE SYSTEM MONOCYTES 9.6(H) 4.0 - 5.0 % INTERFACE SYSTEM EOSINOPHILS 2.1 0.0 - 7.0 % INTERFACE SYSTEM BASOPHILS 0.2 0.0 - 1.0 % INTERFACE SYSTEM NEUTROPHIL ABSOLUTE 5.5 2.0 - 8.0 K/ul INTERFACE SYSTEM LYMPHOCYTE ABSOLUTE 3.8 1.2 - 4.0 K/ul INTERFACE SYSTEM MONOCYTE ABSOLUTE 1.0(H) 0.1 - 0.6 K/ul INTERFACE SYSTEM EOSINOPHIL ABSOLUTE 0.2 0.0 - 0.7 K/ul INTERFACE SYSTEM BASOPHILS ABSOLUTE 0.0 0.0 - 0.2 K/ul INTERFACE SYSTEM 10/24/2007 2:42 AM WATCH ASSEMBLY INSTRUCTOR us Rachel Diallo MD HEMATOLOGY ORDERABLES Edited INTERFACE SYSTEM Refer to clinic/hospital department documented in this encounter Visit Diagnoses Not on filedocumented in this encounter Care Teams Front Desk Coordinator Relationship Specialty Start Date End Date Chiara Wharton MD [address] [place] [phone] PCP - General 10/20/07 documented as of this encounter
--- OUTSIDE RECORDS SUMMARY | 2025-09-30 19:51 | XMS_ITS | Encounter Summary ---
Author Organization [facility] Address [address] [place] [address] Care Team Providers Care Inventory Control Associate Name Role Phone Chiara Wharton MD Primary Care Provider +1- [phone] Encounter Details Date Type Department Care Team (Latest Contact Info) Description 06/12/2006 Outpatient Historical [facility] [address] [place] [address] Javed Campo DO NO ADDRESS ON FILE Acute Pharyngitis (Primary Dx); Acute Sinusitis, Unspecified; Unspecified Otitis Media; Headache Social History Tobacco Use Types Packs/Day Years Used Date Smoking Tobacco: Never Assessed Comments Unknown Sex and Gender Information Value Date Recorded Sex Assigned at Not on file 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
--- OUTSIDE RECORDS SUMMARY | 2025-09-30 19:52 | XMS_ITS | Encounter Summary ---
Author Organization [facility] Address [address] [place] [address] Care Team Providers Care Surgery Center Administrator Name Role Phone Chiara Wharton MD Primary Care Provider +1- [phone] Encounter Details Date Type Department Care Team (Latest Contact Info) Description 12/29/2003 Outpatient Historical [facility] [address] [place] [address] Javed Campo DO NO ADDRESS ON FILE Pediculus capitis (Primary Dx) Social History Tobacco Use Types Packs/Day Years Used Date Smoking Tobacco: Never Assessed Comments Unknown Sex and Gender Information Value Date Recorded Sex Assigned at Not on file Legal Sex Female 5: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
--- OUTSIDE RECORDS SUMMARY | 2025-09-30 19:52 | XMS_ITS | Encounter Summary ---
Author Organization [facility] Address [address] [place] [address] Care Team Providers Care Tonal Regulator Name Role Phone Chiara Wharton MD Primary Care Provider +1- [phone] Encounter Details Date Type Department Care Team (Latest Contact Info) Description 11/10/2004 Outpatient Historical [facility] [address] [place] [address] Javed Campo DO NO ADDRESS ON FILE ACUTE BRONCHITIS (Primary Dx) Social History Tobacco Use Types Packs/Day Years Used Date Smoking Tobacco: Never Assessed Comments Unknown Sex and Gender Information Value Date Recorded Sex Assigned at Not on file Legal Sex Female 5:04 AM ASSEMBLER FOR PULLER OVER HAND Gender Identity Not on file Sexual Orientation Not on file documented as of this encounter Plan of Treatment Not on file documented as of this encounter Visit Diagnoses Diagnosis Acute bronchitis- Primary documented in this encounter Care Teams Tonal Regulator Relationship Specialty Start Date End Date Chiara Wharton MD [address] [place] [address] PCP - General 10/20/07 documented as of this encounter
--- OUTSIDE RECORDS SUMMARY | 2025-09-30 19:52 | XMS_ITS | Encounter Summary ---
Author Organization [facility] Address [address] [place] [address] Care Team Providers Care Medical Driver Name Role Phone Chiara Wharton MD Primary Care Provider +1- [phone] Encounter Details Date Type Department Care Team (Late st Contact Info) Description 08/23/2005 Emergency [facility] Emergency Department [address] [place] [address] Kristin Alan MD [address] [place], [place] [id number] ABRASION HEAD (Primary Dx) Social History Tobacco Use Types Packs/Day Years Used Date Smoking Tobacco: Never Assessed Comments Unknown Sex and Gender Information Value Date Recorded Sex Assigned at Not on file Legal Sex Female 5:04 AM CONVEYOR WEIGHER OPERATOR Gender Identity Not on file Sexual Orientation Not on file documented as of this encounter Plan of Treatment Not on file documented as of this encounter Procedures Procedure Name Priority Date/Time Associated Diagnosis Comments CBC WITH DIFFERENTIAL Routine 08/23/2005 2:33 AM CONVEYOR WEIGHER OPERATOR PROTIME-INR Routine 08/23/2005 2:33 AM CONVEYOR WEIGHER OPERATOR BASIC METABOLIC PANEL Routine 08/23/2005 2:33 AM CONVEYOR WEIGHER OPERATOR documented in this encounter Results * PROTIME-INR (08/23/2005 2:33 AM CONVEYOR WEIGHER OPERATOR) PROTIME 13.8 12.6 - 14.9 Secs INTERFACE SYSTEM Comment: As of 05 note change in normal range. INR 1.0 INTERFACE SYSTEM Comment: Expected Values for INR: DVT/PE Goal INR 2.5; range 2.0 - 3.0 Valve Replacement Tissue Goal INR 2.5; range 2.0 - 3.0 Mechanical Goal INR 3.0; range 2.5 - 3.5 POST-DC Goal INR 2.5; range 2.0 - 3.0 or Goal 3.0; range 2.5 - 3.5 Atrial Fibrillation Goal INR 2.5; range 2.0 - 3.0 Ischemic Stroke Goal INR 2.5; range 2.0 - 3.0 For additional information see Guidelines for Anticoagulation available from the pharmacy Ange Montiel D. 08/23/2005 2:33 AM CONVEYOR WEIGHER OPERATOR us Kristin Alan MD HEMATOLOGY ORDERABLES Anupama hall Result INTERFACE SYSTEM Refer to clinic/hospital department * (ABNORMAL) CBC WITH DIFFERENTIAL (08/23/2005 2:33 AM CONVEYOR WEIGHER OPERATOR) WBC 25.4(H) 4.5 - 13.5 K/ul INTERFACE SYSTEM RBC 5.00 4.00 - 5.20 Mil/ul INTERFACE SYSTEM HEMOGLOBIN 13.8(H) 11.7 - 13.7 g/dL INTERFACE SYSTEM HEMATOCRIT 40.2 34.0 - 41.0 % INTERFACE SYSTEM MCV 80.4 77.0 - 95.0 Fl INTERFACE SYSTEM MCH 27.6 23.0 - 31.0 pg INTERFACE SYSTEM MCHC 34.3 33.0 - 35.0 g/dL INTERFACE SYSTEM RDW 12.9 11.0 - 14.5 % INTERFACE SYSTEM PLATELETS 379 140 - 440 K/ul INTERFACE SYSTEM MPV 9.3 8.9 - 12.8 Fl INTERFACE SYSTEM NEUTROPHILS 84.2(H) 42.2 - 75.2 % INTERFACE SYSTEM LYMPHOCYTES 6.9(L) 28.0 - 48.0 % INTERFACE SYSTEM MONOCYTES 8.7(H) 4.0 - 5.0 % INTERFACE SYSTEM EOSINOPHILS 0.1 0.0 - 7.0 % INTERFACE SYSTEM BASOPHILS 0.1 0.0 - 1.0 % INTERFACE SYSTEM NEUTROPHIL ABSOLUTE 21.4(H) 2.0 - 8.0 K/uL INTERFACE SYSTEM LYMPHOCYTE ABSOLUTE 1.8 1.2 - 4.0 K/ul INTERFACE SYSTEM MONOCYTE ABSOLUTE 2.2(H) 0.1 - 0.6 K/ul INTERFACE SYSTEM EOSINOPHIL ABSOLUTE 0.0 0.0 - 0.7 K/ul INTERFACE SYSTEM BASOPHILS ABSOLUTE 0.0 0.0 - 0.2 K/ul INTERFACE SYSTEM PERIPHERAL BLOOD SMEAR REVIEW Smear Reviewed INTERFACE SYSTEM 08/23/2005 2:33 AM CONVEYOR WEIGHER OPERATOR Kristin Alan MD HEMATOLOGY ORDERABLES Anupama l Result Performing Organization Address [facility] de Phone Number INTERFACE SYSTEM Refer to clinic/hospital department * (ABNORMAL) BASIC METABOLIC PANEL (08/23/2005 2:33 AM CONVEYOR WEIGHER OPERATOR) GLUCOSE 109(H) 60 - 100 mg/dL INTERFACE SYSTEM BUN 26(H) 7 - 17 mg/dL INTERFACE SYSTEM CREATININE 0.6 0.2 - 0.7 mg/dL INTERFACE SYSTEM SODIUM 141 136 - 145 mEq/L INTERFACE SYSTEM POTASSIUM 3.6 3.5 - 5.0 mEq/L INTERFACE SYSTEM CHLORIDE 106 95 - 110 mEq/L INTERFACE SYSTEM CO2 22 22 - 32 mmol/l INTERFACE SYSTEM ANION GAP 17 9 - 20 mEq/L INTERFACE SYSTEM OSMOLALITY, CALCULATED 294 275 - 295 mOsm/Kg INTERFACE SYSTEM CALCIUM 9.5 8.4 - 10.5 mg/dL INTERFACE SYSTEM 08/23/2005 2:33 AM CONVEYOR WEIGHER OPERATOR us Kristin Alan MD CHEMISTRY ORDERABLES Final Result Performing Organization Address [facility] Phone Number INTERFACE SYSTEM Refer to clinic/hospital department documented in this encounter Visit Diagnoses Diagnosis Face, neck, and scalp, except eye, abrasion or friction burn, without mention of infection- Primary documented in this encounter Care Teams Medical Driver Relationship Specialty Start Date End Date Chiara Wharton MD [address] [place] [phone] PCP - General 10/20/07 documented as of this encounter
--- OUTSIDE RECORDS SUMMARY | 2025-09-30 19:52 | XMS_ITS | Encounter Summary ---
Author Organization [facility] Address [address] [place] [address] Care Team Providers Care Power Transformer Repair Supervisor Name Role Phone Chiara Wharton MD Primary Care Provider +1- [phone] Encounter Details Date Type Department Care Team (Latest Contact Info) Description 11/21/2003 Outpatient Historical [facility] [address] [place] [phone] Javed Campo DO NO ADDRESS ON FILE NONSPECIF SKIN ERUPT NEC (Primary Dx); ACUTE PHARYNGITIS Social History Tobacco Use Types Packs/Day Years Used Date Smoking Tobacco: Never Assessed Comments Unknown Sex and Gender Information Value Date Recorded Sex Assigned at Not on file Legal Sex Female 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
--- OUTSIDE RECORDS SUMMARY | 2025-09-30 19:52 | XMS_ITS | Encounter Summary ---
Author Organization [facility] Address [address] [place] [address] Care Team Providers Care Oil Pumper Name Role Phone Chiara Wharton MD Primary Care Provider +1- [phone] Encounter Details Date Type Department Care Team (Latest Contact Info) Description 01/01/2003 Outpatient Historical [facility] [address] [place] [address] Javed Campo DO NO ADDRESS ON FILE NONSPECIF SKIN ERUPT NEC (Primary Dx) Social History Tobacco Use Types Packs/Day Years Used Date Smoking Tobacco: Never Assessed Comments Unknown Sex and Gender Information Value Date Recorded Sex Assigned at Not on file Legal Sex Female 5:04 AM SEAT COVER MAKER Gender Identity Not on file Sexual Orientation Not on file documented as of this encounter Plan of Treatment Not on file documented as of this encounter Visit Diagnoses Diagnosis Rash and other nonspecific skin eruption- Primary documented in this encounter Care Teams Oil Pumper Relationship Specialty Start Date End Date Chiara Wharton MD [address] [place] [id number] PCP - General 10/20/07 documented as of this encounter
--- OUTSIDE RECORDS SUMMARY | 2025-09-30 19:52 | XMS_ITS | Encounter Summary ---
Author Organization [facility] Address [address] [place] [address] Care Team Providers Care Casting House Laborer Name Role Phone Chiara Wharton MD Primary Care Provider +1- [phone] Encounter Details Date Type Department Care Team (Latest Contact Info) Description 07/08/2003 Outpatient Historical [facility] [address] [place] [address] Javed Campo DO NO ADDRESS ON FILE VIRAL WARTS NOS (Primary Dx) Social History Tobacco Use Types Packs/Day Years Used Date Smoking Tobacco: Never Assessed Comments Unknown Sex and Gender Information Value Date Recorded Sex Assigned at Not on file Legal Sex Female 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
--- OUTSIDE RECORDS SUMMARY | 2025-09-30 19:52 | XMS_ITS | Encounter Summary ---
Author Organization [facility] Address [address] [place] [address] Care Team Providers Care Invoice Classification Clerk Name Role Phone Chiara Wharton MD Primary Care Provider +1- [phone] Encounter Details Date Type Department Care Team (Latest Contact Info) Description 10/22/2004 Outpatient Historical [facility] [address] [place] [address] Javed Campo DO NO ADDRESS ON FILE NONSPECIF SKIN ERUPT NEC (Primary Dx); SCABIES Social History Tobacco Use Types Packs/Day Years Used Date Smoking Tobacco: Never Assessed Comments Unknown Sex and Gender Information Value Date Recorded Sex Assigned at Not on file 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
--- OUTSIDE RECORDS SUMMARY | 2025-09-30 19:52 | XMS_ITS | Encounter Summary ---
Author Organization [facility] Address [address] [place] [address] Care Team Providers Care Assistant Merchandiser Name Role Phone Chiara Wharton MD Primary Care Provider +1- [phone] Encounter Details Date Type Department Care Team (Latest Contact Info) Description 04/03/2003 Outpatient [facility] [address] [place] [phone] Javed Campo DO NO ADDRESS ON FILE VIRAL WARTS NOS (Primary Dx); DERMATITIS OTHER NEC Social History Tobacco Use Types Packs/Day Years Used Date Smoking Tobacco: Never Assessed Comments Unknown Sex and Gender Information Value Date Recorded Sex Assigned at Not on file 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
--- OUTSIDE RECORDS SUMMARY | 2025-09-30 19:52 | XMS_ITS | Encounter Summary ---
Author Organization [facility] Address [address] [place] [address] Care Team Providers Care Parcel Post Delivery Name Role Phone Chiara Wharton MD Primary Care Provider +1- [phone] Encounter Details Date Type Department Care Team (Latest Contact Info) Description 01/31/2003 Outpatient Historical [facility] [address] 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
--- OUTSIDE RECORDS SUMMARY | 2025-09-30 19:52 | XMS_ITS | Encounter Summary ---
Author Organization [facility] Address [address] [place] [address] Care Team Providers Care Etcher Apprentice Photoengraving Name Role Phone Chiara Wharton MD Primary Care Provider +1- [phone] Encounter Details Date Type Department Care Team (Late st Contact Info) Description 09/28/2002 Emergency [facility] Emergency Department [address] 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
--- OUTSIDE RECORDS SUMMARY | 2025-09-30 19:52 | XMS_ITS | Encounter Summary ---
Author Organization [facility] Address [address] [place] [address] Care Team Providers Care Boilermaker Pipe Fitter Name Role Phone Chiara Wharton MD Primary Care Provider +1- [phone] Encounter Details Date Type Department Care Team (Latest Contact Info) Description 07/01/2003 Outpatient Historical [facility] [address] [place] [address] Javed Campo DO NO ADDRESS ON FILE VIRAL WARTS NOS (Primary Dx) Social History Tobacco Use Types Packs/Day Years Used Date Smoking Tobacco: Never Assessed Comments Unknown Sex and Gender Information Value Date Recorded Sex Assigned at Not on file 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
[2025-09-30 19:54] VITALS: BP 139/83; PULSE 95; O2SAT 98
[2025-09-30 19:55] LABS: Hematocrit 38.7 % (36-47); Hemoglobin 12.70 g/dL (11.27-16.99); Mean Corpuscular HGB Conc 32.8 g/dL (30-55); Mean Corpuscular Hemoglobin 29.6 pg (27-33); Mean Corpuscular Volume 90.2 fl (85-98); Nucleated Red Blood Cells % 0 %; Platelet Count 256 10^3/cmm (157-399); Red Blood Count 4.29 10^6/uL (3.85-5.65); White Blood Count 9.96 10^3/uL (3.29-11.43)
[2025-09-30 20:17] LABS: Alanine Aminotransferase 37 U/L (0-33); Albumin Level 4.6 g/dL (3.5-5.2); Alkaline Phosphatase 48 U/L (35-105); Anion Gap 14.9 (5-19); Aspartate Amino Transferase 20 U/L (0-32); Blood Urea Nitrogen 22 mg/dL (6-20); Calcium 9.2 mg/dL (8.5-10.5); Carbon Dioxide 24 mmol/L (22-29); Chloride 102 mmol/L (98-107); Globulin 2.5 g/dL (1.3-4.6); Glucose 76 mg/dL (65-115); Osmolality Calculated 286 mOsm/kg (285-295); Potassium 3.9 mmol/L (3.5-5.1); Sodium 137 mmol/L (136-145); Total Protein 7.1 g/dL (6.6-8.7)
[2025-09-30 20:38] LABS: Glucose Urine UA Negative (Normal); Nitrate Urine Negative (Negative)
[2025-09-30 20:42] LABS: HCG, Serum Qual Negative (Negative)
[2025-09-30 20:44] LABS: Add Urine Microscopic? YES
[2025-09-30 20:51] LABS: Specific Gravity, Urine 1.040 (1.005-1.030)
[2025-09-30 21:10] VITALS: BP 137/87; PULSE 87; O2SAT 98
== END 2025-09-30 21:11 | disposition home or self-care (01) ==
PROVIDERS: Emergency Provider Family Medicine; PCP Nurse Practitioner Family
DX: N83.201 Unspecified ovarian cyst, right side (principal); N30.90 Cystitis, unspecified without hematuria; F17.290 Nicotine dependence, other tobacco product, uncomplicated
CPT/HCPCS: 76830; 76857; 80053; 81001; 84703; 85025; 99284